=== PATIENT | female | born 1995 | race Hispanic/Latino ===

== ENCOUNTER 2019-12-20 00:42 | Inpatient (IN) | payer SELFPAY ==
[~2019-12-20] VITALS: Ht 165.1 cm; Wt 84.2 kg
[2019-12-20] VITALS (24 sets, daily range): BP systolic 106–157; BP diastolic 60–108
[2019-12-20 00:59] LABS: APPEARANCE,URINE Clear (CLEAR); BILIRUBIN,URINE Negative (NEGATIVE); COLOR,URINE Yellow (YELLOW); GLUCOSE, URINE (UA) >=1000 mg/dL (NEGATIVE); KETONES,URINE 40 mg/dL (NEGATIVE); LEUKOCYTE ESTERASE ,URINE Negative (NEGATIVE); NITRATE,URINE Negative (NEGATIVE); OCCULT BLOOD,URINE Negative (NEGATIVE); PROTEIN,URINE Trace mg/dL (NEGATIVE); UROBILINOGEN,URINE 0.2 mg/dL (0.2-1.0)
[2019-12-20 01:01] LABS: HCG,QUAL RESULT NEGATIVE (NEGATIVE)
[2019-12-20] MEDS ORDERED: SODIUM CHLORIDE 0.9% 1000ML 2,000 ML IV ONE (01:07)
[2019-12-20 01:08] LABS: ABG OXYGEN SATURATION 93.7 % (95.0-99.0); BASE EXCESS,VENOUS BLOOD GAS -16.4 (-2.0-3.0); HCO3,VENOUS BLOOD GAS 7.9 (21.0-28.0); PCO2,VENOUS BLOOD GAS 18 (32-45)
[2019-12-20] MEDS ORDERED: METOCLOPRAMIDE 10 MG/2 ML VIAL ONE (01:08)
[2019-12-20] MEDS ORDERED: ONDANSETRON HCL 4 MG/2 ML VIAL ONE (01:08)
[2019-12-20] MEDS ORDERED: FAMOTIDINE/PF 20 MG/2 ML VIAL IV ONE (01:09)
[2019-12-20 01:10] LABS: RBC,URINE 0-1 /HPF (0-1); WBC,URINE 0-1 /HPF (0-1)
[2019-12-20 01:11] LABS: BACTERIA,URINE Rare /HPF (None Seen); SQUAMOUS EPITHELIAL CELL,UR 0-2 /HPF (0-2)
[2019-12-20 01:16] LABS: AMPHET/METH SCREEN,URINE NEGATIVE (NEGATIVE); BARBITURATE SCREEN, URINE NEGATIVE (NEGATIVE); BENZODIAZEPINES SCREEN,URINE POSITIVE (NEGATIVE); CANNABINOID SCREEN,URINE NEGATIVE (NEGATIVE); COCAINE SCREEN,URINE NEGATIVE (NEGATIVE); OPIATE SCREEN,URINE NEGATIVE (NEGATIVE); PHENCYCLIDINE SCREEN,URINE NEGATIVE (NEGATIVE)
[2019-12-20 01:27] LABS: BASOPHILS % (AUTO) 0.6 % (0.0-5.0); EOSINOPHILS % (AUTO) 1.3 % (0.0-8.0); HEMATOCRIT 40.1 % (36-48); LYMPHOCYTES % (AUTO) 36.7 % (21.0-51.0); MEAN CORPUSCULAR HEMOGLOBIN 36.7 pg (27.0-33.0); MEAN CORPUSCULAR HGB CONC 42.1 g/dL (32.0-36.0); NEUTROPHILS % (AUTO) 55.1 % (40.0-77.0); PLATELET COUNT (AUTO) 178 K/uL (130-400); RED BLOOD CELL COUNT(AUTO) 4.61 MIL/uL (4.00-5.50); RED CELL DISTRIBUTION WIDTH 12.1 % (11.0-15.5); WHITE BLOOD COUNT (AUTO) 5.4 K/uL (4.8-10.8)
[2019-12-20] MEDS ORDERED: SODIUM CHLORIDE 0.9% 1000ML 1,000 ML IV ONE ×3 (01:36→09:20)
[2019-12-20 02:09] LABS: CREATININE 0.4 mg/dL (0.5-1.5)
[2019-12-20 02:14] LABS: BILIRUBIN,TOTAL 0.6 mg/dL (0.2-1.0)
[2019-12-20 02:18] LABS: ALBUMIN 4.2 g/dL (3.5-5.0); TOTAL PROTEIN, SERUM 7.2 g/dL (6.0-8.3)
[2019-12-20] MEDS ORDERED: INSULIN HUMULIN R 100 UNIT/ML 3ML ONE ×2 (02:19→03:18)
[2019-12-20 02:20] LABS: INR 0.88 (0.85-1.15); PARTIAL THROMBOPLASTIN TIME 21.4 SEC (26.3-35.5); PROTHROMBIN TIME 9.6 SEC (9.6-11.6)
[2019-12-20] MEDS ORDERED: DEXTROSE 5 %-0.45 % NACL 1,000 ML IV PRN (02:44)
[2019-12-20] MEDS: SODIUM CHLORIDE 0.9% 1000ML 1,000 ML IV SCH ×6 (02:44→22:11)
[2019-12-20] MEDS ORDERED: SODIUM CHLORIDE 0.9% 1000ML 1,000 ML IV SCH (02:44)
[2019-12-20] MEDS ORDERED: PHARMACY COMMUNICATION MISC PRN (02:45)
[2019-12-20] MEDS ORDERED: CHLORDIAZEPOXIDE HCL 25 MG CAP PO PRN ×2 (02:45)
[2019-12-20] MEDS ORDERED: POTASSIUM CHLORIDE 10MEQ/100ML 100 ML IV PRN (02:45)
[2019-12-20] MEDS ORDERED: ACETAMINOPHEN 325 MG TAB PO PRN ×2 (02:45)
[2019-12-20] MEDS ORDERED: LACTULOSE 20 GM/30 ML UDCUP PO PRN (02:45)
[2019-12-20] MEDS ORDERED: LORAZEPAM 2 MG/ML 1 ML VIAL IVP PRN ×2 (02:45)
[2019-12-20] MEDS ORDERED: ONDANSETRON HCL 4 MG/2 ML VIAL IV PRN (02:45)
[2019-12-20] MEDS ORDERED: SODIUM CHLORIDE 0.9% 100 ML IV ONE ×2 (03:18→03:22)
[2019-12-20 03:25] LABS: ABG BASE EXCESS -8.7 mmol/L (-2.0-3.0); ABG HCO3 16.6 mmol/L (21.0-28.0); ABG PCO2 34 mmHg (32-45)
--- NOTE | 2019-12-20 05:42 | NUR ---
Received patient from ER on insulin drip and on NS @200 ml/hr .Patient is admitted for DKA.Patient is alert and oriented,denies any discomfort at this time.Patient instructed to use call light for assistance.
[2019-12-20 07:08] LABS: BASOPHILS % (AUTO) 0.5 % (0.0-5.0); EOSINOPHILS % (AUTO) 0.8 % (0.0-8.0); HEMATOCRIT 37.7 % (36-48); LYMPHOCYTES % (AUTO) 30.2 % (21.0-51.0); MEAN CORPUSCULAR HEMOGLOBIN 34.5 pg (27.0-33.0); MEAN CORPUSCULAR HGB CONC 39.8 g/dL (32.0-36.0); MEAN CORPUSCULAR VOLUME 86.7 fL (79-99); NEUTROPHILS % (AUTO) 62.7 % (40.0-77.0); PLATELET COUNT (AUTO) 165 K/uL (130-400); RED BLOOD CELL COUNT(AUTO) 4.35 MIL/uL (4.00-5.50); RED CELL DISTRIBUTION WIDTH 12.1 % (11.0-15.5); WHITE BLOOD COUNT (AUTO) 7.6 K/uL (4.8-10.8)
[2019-12-20 07:19] LABS: CREATININE 0.5 mg/dL (0.5-1.5); MAGNESIUM 1.2 mg/dL (1.80-2.40); POTASSIUM 3.1 mmol/L (3.5-5.1)
[2019-12-20] MEDS ORDERED: INSULIN HUMULIN R 100 UNIT/ML 3ML SQ SCH (07:30)
[2019-12-20] MEDS ORDERED: MAGNESIUM 2GM PREMIX 50ML 50 ML IV ONE (07:57)
[2019-12-20] MEDS: FAMOTIDINE/PF 20 MG/2 ML VIAL IV SCH ×2 (08:02→20:07)
[2019-12-20] MEDS: ENOXAPARIN SODIUM 40 MG/0.4 ML SYRINGE SQ SCH (08:03)
[2019-12-20] MEDS ORDERED: POTASSIUM CHLORIDE 20 MEQ in SODIUM CHLORIDE 0.9% 1000ML 1,000 ML IV SCH (08:59)
[2019-12-20] MEDS: MAGNESIUM 2GM PREMIX 50ML 50 ML IV SCH ×2 (09:14→09:28)
[2019-12-20] MEDS: INSULIN LISPRO 100 UNIT/ML 3ML SQ SCH ×5 (11:58→20:17)
--- NOTE | 2019-12-20 15:03 | NUR ---
INITIAL SW spoke with patient. Patient states she lives with boyfriend, Kieran Ewing , [phone]. No home services. DME: glucometer(uses insulin). Patient states she is working at a [employer]. She states she is able to complete ADL's independently but does not drive. PCP is Dr. Joaquin Roa at [facility]. Pharmacy is [facility]. DCP is home. Patient has no insurance or benefits. He is a [place] citizen and works. SW educated patient on [employer] $4 medication program and [employer] $5 medication program. Patient is being assisted by [employer] for financial matters. Addendum: 12/20/19 at 1518 by CRISTEL ALCANTARA SS Amended: Links added.
[2019-12-20 16:24] LABS: CREATININE 0.5 mg/dL (0.5-1.5); MAGNESIUM 2.4 mg/dL (1.80-2.40); PHOSPHORUS 2.3 mg/dL (2.5-4.9); POTASSIUM 3.9 mmol/L (3.5-5.1)
--- NOTE | 2019-12-20 17:10 | NUR ---
transfer report given to reema ibarra and patient transferred to room 309; patient relaxed in bed with no complaints at this time
--- NOTE | 2019-12-20 20:10 | NUR ---
MEDS SHIFT ASSESSMENT DONE, PLEASE REFER TO CHART. DUE MEDS ADMINISTERED, TOLERATED WELL. KEPT RESTED AND COMFORTABLE. CALL LIGHT WITHIN REACH. WILL MONITOR PT. Addendum: 12/21/19 at 0148 by MARTINEZ MCGRATH RN RN Amended: Links added.
[2019-12-20] MEDS: INSULIN GLARGINE 100 UNITS/ML 10 ML VIAL SQ SCH (20:17)
--- NOTE | 2019-12-20 21:00 | NUR ---
SHOWER PT REQUESTED TO SHOWER. SALINE LOCKED PT. PCP IN TO ASSIST PT.
[2019-12-21 00:51] VITALS: BP 127/74
--- NOTE | 2019-12-21 02:00 | NUR ---
ROUNDS PT RESTING WELL, FAIRLY ASLEEP. NO DISTRESS NOTED. KEPT RESTED AND COMFORTABLE. CALL LIGHT WITHIN REACH. WILL MONITOR PT.
[2019-12-21] MEDS: SODIUM CHLORIDE 0.9% 1000ML 1,000 ML IV SCH ×4 (03:08→17:41)
[2019-12-21 03:26] VITALS: BP 123/70
[2019-12-21 04:12] LABS: BASOPHILS % (AUTO) 0.5 % (0.0-5.0); EOSINOPHILS % (AUTO) 2.3 % (0.0-8.0); HEMATOCRIT 34.1 % (36-48); HEMOGLOBIN A1C 9.9 % (4.0-6.0); LYMPHOCYTES % (AUTO) 54.4 % (21.0-51.0); MEAN CORPUSCULAR HEMOGLOBIN 31.3 pg (27.0-33.0); MEAN CORPUSCULAR HGB CONC 35.8 g/dL (32.0-36.0); MEAN CORPUSCULAR VOLUME 87.4 fL (79-99); MONOCYTES % (AUTO) 4.9 % (3.0-13.0); NEUTROPHILS % (AUTO) 37.1 % (40.0-77.0); PLATELET COUNT (AUTO) 123 K/uL (130-400); RED CELL DISTRIBUTION WIDTH 12.4 % (11.0-15.5); WHITE BLOOD COUNT (AUTO) 3.9 K/uL (4.8-10.8)
[2019-12-21 04:33] LABS: CREATININE 0.5 mg/dL (0.5-1.5); MAGNESIUM 1.6 mg/dL (1.80-2.40); PHOSPHORUS 2.7 mg/dL (2.5-4.9); POTASSIUM 3.5 mmol/L (3.5-5.1)
[2019-12-21] MEDS: MAGNESIUM 2GM PREMIX 50ML 50 ML IV SCH (04:50)
--- NOTE | 2019-12-21 04:50 | NUR ---
MEDS PT ALREADY AWAKE, WATCHING TV. NO CONCERNS VERBALIZED. MAGNESIUM REPLACEMENT HUNG. KEPT RESTED IN BED. FOR MORE CARE.
[2019-12-21] MEDS: INSULIN LISPRO 100 UNIT/ML 3ML SQ SCH ×6 (06:39→21:00)
[2019-12-21 07:30] VITALS: BP 122/76
[2019-12-21] MEDS: FAMOTIDINE/PF 20 MG/2 ML VIAL IV SCH ×2 (08:37→22:06)
[2019-12-21] MEDS: ENOXAPARIN SODIUM 40 MG/0.4 ML SYRINGE SQ SCH (08:37)
[2019-12-21 11:00] VITALS: BP 131/82
[2019-12-21 16:00] VITALS: BP 133/78
[2019-12-21 20:39] VITALS: BP 135/80
[2019-12-21] MEDS: INSULIN GLARGINE 100 UNITS/ML 10 ML VIAL SQ SCH (22:08)
[2019-12-22 00:19] VITALS: BP 137/76
--- NOTE | 2019-12-22 00:26 | NUR ---
TOOK OVER CARE TOOK OVER CARE OF PATIENT DUE TO REAL RN BEING SENT HOME. PATIENT IS RESTING IN BED AT THIS TIME NO CONCERNS OR COMPLAINTS AT THIS TIME.
[2019-12-22] MEDS: SODIUM CHLORIDE 0.9% 1000ML 1,000 ML IV SCH ×3 (00:59→12:13)
[2019-12-22 04:00] VITALS: BP 127/82
[2019-12-22 05:33] LABS: BASOPHILS % (AUTO) 0.4 % (0.0-5.0); EOSINOPHILS % (AUTO) 2.6 % (0.0-8.0); HEMATOCRIT 34.7 % (36-48); LYMPHOCYTES % (AUTO) 54.3 % (21.0-51.0); MEAN CORPUSCULAR HGB CONC 35.4 g/dL (32.0-36.0); MEAN CORPUSCULAR VOLUME 87.4 fL (79-99); MONOCYTES % (AUTO) 5.7 % (3.0-13.0); NEUTROPHILS % (AUTO) 36.6 % (40.0-77.0); PLATELET COUNT (AUTO) 137 K/uL (130-400); RED BLOOD CELL COUNT(AUTO) 3.97 MIL/uL (4.00-5.50); RED CELL DISTRIBUTION WIDTH 12.3 % (11.0-15.5); WHITE BLOOD COUNT (AUTO) 4.7 K/uL (4.8-10.8)
[2019-12-22 06:16] LABS: ALBUMIN 2.9 g/dL (3.5-5.0); BILIRUBIN,TOTAL 0.6 mg/dL (0.2-1.0); CREATININE 0.5 mg/dL (0.5-1.5); MAGNESIUM 1.5 mg/dL (1.80-2.40); POTASSIUM 3.2 mmol/L (3.5-5.1)
[2019-12-22 07:27] VITALS: BP 122/75
[2019-12-22] MEDS: INSULIN LISPRO 100 UNIT/ML 3ML SQ SCH ×6 (07:30→16:43)
[2019-12-22] MEDS ORDERED: POTASSIUM CHLORIDE 20 MEQ ERTAB PO SCH ×2 (07:30→12:00)
[2019-12-22] MEDS: ENOXAPARIN SODIUM 40 MG/0.4 ML SYRINGE SQ SCH (08:25)
[2019-12-22] MEDS: FAMOTIDINE/PF 20 MG/2 ML VIAL IV SCH (08:25)
[2019-12-22 10:45] VITALS: BP 120/75
[2019-12-22] MEDS ORDERED: INSU100V SQ (14:53)
[2019-12-22] MEDS ORDERED: INSLAN SQ (14:53)
[2019-12-22] MEDS ORDERED: MAGNESIUM OXIDE 400 MG TABLET PO SCH (15:15)
[2019-12-22 15:37] VITALS: BP 129/80
[2019-12-22] MEDS: MAGNESIUM 2GM PREMIX 50ML 50 ML IV SCH (16:40)
== END 2019-12-22 18:40 | disposition home or self-care (01) | DRG 639 ==
LOC: EDH 00:42 → EDHIP 00:43 → 2BH 04:30 → 3BH 17:25
PROVIDERS: ADMIT Internal Medicine; ATTEND Internal Medicine
DX: E11.10 Type 2 diabetes mellitus with ketoacidosis without coma (principal); E86.1 Hypovolemia; F13.90 Sedative, hypnotic, or anxiolytic use, unspecified, uncomplicated; F17.210 Nicotine dependence, cigarettes, uncomplicated; Z91.19 Patient's noncompliance with other medical treatment and regimen; Z91.14 Patient's other noncompliance with medication regimen; Z79.4 Long term (current) use of insulin
CPT/HCPCS: 36415; 36600; 80048; 80053; 80305; 81001; 81025; 82010; 82435; 82550; 82803; 82947; 82948; 83036; 83605; 83690; 83735; 84100; 84132; 84295; 85018; 85025; 85610; 85730; G0378; G0480; J1650; J1815; J2405; J2765; J3475; J3480; J3490; J7030; J7042

== ENCOUNTER 2020-12-24 07:30 | Inpatient (IN) | payer SELFPAY ==
[~2020-12-24] VITALS: Ht 165.1 cm; Wt 81.0 kg
[~2020-12-24 07:30] MED LIST: INSLAN SQ; INSU100V SQ
[2020-12-24 07:58] LABS: BASOPHILS % (AUTO) 0.3 % (0.0-5.0); EOSINOPHILS % (AUTO) 0.1 % (0.0-8.0); HEMATOCRIT 40.3 % (36-48); LYMPHOCYTES % (AUTO) 10.1 % (21.0-51.0); MEAN CORPUSCULAR HEMOGLOBIN 30.5 pg (27.0-33.0); MEAN CORPUSCULAR HGB CONC 36.2 g/dL (32.0-36.0); MEAN CORPUSCULAR VOLUME 84.3 fL (79-99); MONOCYTES % (AUTO) 6.6 % (3.0-13.0); NEUTROPHILS % (AUTO) 82.3 % (40.0-77.0); PLATELET COUNT (AUTO) 192 K/uL (130-400); RED BLOOD CELL COUNT(AUTO) 4.78 MIL/uL (4.00-5.50); RED CELL DISTRIBUTION WIDTH 12.3 % (11.0-15.5); WHITE BLOOD COUNT (AUTO) 16.7 K/uL (4.8-10.8)
[2020-12-24 08:02] LABS: BILIRUBIN,URINE Negative (NEGATIVE); COLOR,URINE Yellow (YELLOW); GLUCOSE, URINE (UA) >=1000 mg/dL (NEGATIVE); KETONES,URINE >=160 mg/dL (NEGATIVE); LEUKOCYTE ESTERASE ,URINE Negative (NEGATIVE); NITRATE,URINE Negative (NEGATIVE); OCCULT BLOOD,URINE Negative (NEGATIVE); PROTEIN,URINE POS 1+ mg/dL (NEGATIVE); UROBILINOGEN,URINE 0.2 mg/dL (0.2-1.0)
[2020-12-24 08:04] LABS: APPEARANCE,URINE CLEAR (CLEAR); CREATININE 0.5 mg/dL (0.5-1.5); POTASSIUM 4.3 mmol/L (3.5-5.1)
[2020-12-24 08:05] LABS: HCG,QUAL RESULT NEGATIVE (NEGATIVE)
[2020-12-24 08:09] LABS: ALBUMIN 3.3 g/dL (3.5-5.0); TOTAL PROTEIN, SERUM 7.8 g/dL (6.0-8.3)
[2020-12-24] MEDS ORDERED: KETOROLAC 30MG VIAL (30MG/ML) ONE (08:30)
[2020-12-24] MEDS ORDERED: 0.9%NACL 1000ML 1,000 ML IV ONE ×2 (08:30→15:05)
[2020-12-24] MEDS ORDERED: FAMOTIDINE 20MG VIAL IV ONE ×2 (08:31→20:22)
[2020-12-24 08:33] LABS: BACTERIA,URINE Few /HPF (None Seen); RBC,URINE None Seen /HPF (0-1); WBC,URINE 0-1 /HPF (0-1)
[2020-12-24 08:45] LABS: ABG OXYGEN SATURATION 76.1 % (95.0-99.0); BASE EXCESS,VENOUS BLOOD GAS -8.9 (-2.0-3.0); HCO3,VENOUS BLOOD GAS 14.8 (21.0-28.0); PCO2,VENOUS BLOOD GAS 27 (32-45); PH,VENOUS BLOOD GAS 7.357 (7.350-7.450)
[2020-12-24] MEDS ORDERED: INSULIN HUMULIN R 100 UNIT/ML 3ML ONE (09:21)
[2020-12-24] MEDS ORDERED: ZOSYN 3.375GM+NS 50ML 50 ML IV ONE ×2 (10:54→20:21)
[2020-12-24 11:01] LABS: HEMOGLOBIN A1C 10.5 % (4.0-6.0)
[2020-12-24 11:16] LABS: CREATININE 0.5 mg/dL (0.5-1.5); POTASSIUM 4.2 mmol/L (3.5-5.1)
[2020-12-24 11:42] LABS: THYROID STIMULATING HORMONE 2.63 uIU/mL (0.36-3.74)
[2020-12-24 11:44] LABS: CHOLESTEROL 327 mg/dL (<200); TRIGLYCERIDES 1935 mg/dL (30-200)
[2020-12-24 11:45] LABS: LDL DIRECT 95 mg/dL (0-99)
[2020-12-24] MEDS ORDERED: 0.9%NACL 1000ML 1,000 ML IV SCH (12:00)
[2020-12-24] MEDS ORDERED: INSULIN HUMULIN R 100 UNIT/ML 3ML IV SCH (12:00)
[2020-12-24] MEDS: 0.9%NACL 1000ML 1,000 ML IV SCH ×3 (12:00→22:00)
[2020-12-24 12:07] LABS: HDL CHOLESTEROL 28 mg/dL (35-85)
[2020-12-24] MEDS: THIAMINE HCL 100 MG/ML 2ML VIAL IVP SCH (12:15)
[2020-12-24] MEDS ORDERED: INSULIN REGULAR, HUMAN 3ML 100 UNIT in 0.9%NACL 100ML 99 ML IV PRN ×2 (12:15)
[2020-12-24] MEDS ORDERED: IPRATROPIUM/ALBUTEROL SULFATE 3 ML SOLUTION IH PRN (12:15)
[2020-12-24] MEDS: FOLIC ACID 5 MG/ML VIAL IV SCH (12:15)
[2020-12-24] MEDS ORDERED: PHARMACY COMMUNICATION MISC SCH (12:15)
[2020-12-24 12:53] LABS: CREATININE 0.5 mg/dL (0.5-1.5); POTASSIUM 4.4 mmol/L (3.5-5.1)
[2020-12-24] MEDS: ZOSYN 3.375GM+NS 50ML 50 ML IV SCH ×2 (14:00→22:00)
[2020-12-24] MEDS ORDERED: GADODIAMIDE 10 MMOL/20 ML VIAL IV ONE (14:45)
[2020-12-24] MEDS ORDERED: THIAMINE HCL 100 MG/ML 2ML VIAL ONE (15:46)
[2020-12-24] MEDS ORDERED: FOLIC ACID 5 MG/ML VIAL ONE (15:49)
[2020-12-24] MEDS ORDERED: DEXTROSE 5 %-0.45 % NACL 1,000 ML IV ONE (17:07)
[2020-12-24 17:23] LABS: AMPHET/METH SCREEN,URINE NEGATIVE (NEGATIVE); BARBITURATE SCREEN, URINE NEGATIVE (NEGATIVE); BENZODIAZEPINES SCREEN,URINE NEGATIVE (NEGATIVE); CANNABINOID SCREEN,URINE NEGATIVE (NEGATIVE); COCAINE SCREEN,URINE NEGATIVE (NEGATIVE); OPIATE SCREEN,URINE NEGATIVE (NEGATIVE); PHENCYCLIDINE SCREEN,URINE NEGATIVE (NEGATIVE)
[2020-12-24 19:31] LABS: CREATININE 0.5 mg/dL (0.5-1.5); POTASSIUM 3.9 mmol/L (3.5-5.1)
[2020-12-24] MEDS: FAMOTIDINE 20MG VIAL IV SCH (21:00)
[2020-12-24] MEDS ORDERED: ONDANSETRON 4MG INJ ONE (21:13)
[2020-12-24] MEDS ORDERED: MORPHINE 4 MG SYG ONE (21:13)
[2020-12-24 22:52] VITALS: BP 138/80
[2020-12-24 23:05] VITALS: BP 138/74
[2020-12-24] MEDS: DEXTROSE 5 %-0.45 % NACL 1,000 ML IV PRN (23:17)
[2020-12-24 23:20] VITALS: BP 133/77
[2020-12-24 23:35] VITALS: BP 133/76
[2020-12-25] VITALS (24 sets, daily range): BP systolic 125–143; BP diastolic 67–88
[2020-12-25 01:45] LABS: CREATININE 0.4 mg/dL (0.5-1.5); POTASSIUM 3.5 mmol/L (3.5-5.1)
[2020-12-25] MEDS: 0.9%NACL 1000ML 1,000 ML IV SCH ×5 (03:00→21:06)
[2020-12-25 05:41] LABS: BASOPHILS % (AUTO) 0.3 % (0.0-5.0); EOSINOPHILS % (AUTO) 0.4 % (0.0-8.0); MEAN CORPUSCULAR HEMOGLOBIN 30.8 pg (27.0-33.0); MEAN CORPUSCULAR HGB CONC 35.3 g/dL (32.0-36.0); MEAN CORPUSCULAR VOLUME 87.4 fL (79-99); MONOCYTES % (AUTO) 5.9 % (3.0-13.0); NEUTROPHILS % (AUTO) 81.1 % (40.0-77.0); PLATELET COUNT (AUTO) 154 K/uL (130-400); RED BLOOD CELL COUNT(AUTO) 4.12 MIL/uL (4.00-5.50); RED CELL DISTRIBUTION WIDTH 13.1 % (11.0-15.5); WHITE BLOOD COUNT (AUTO) 12.9 K/uL (4.8-10.8)
[2020-12-25] MEDS: ZOSYN 3.375GM+NS 50ML 50 ML IV SCH ×3 (05:54→21:08)
[2020-12-25] MEDS: DEXTROSE 5 %-0.45 % NACL 1,000 ML IV PRN (05:54)
[2020-12-25 07:21] LABS: CREATININE 0.4 mg/dL (0.5-1.5); POTASSIUM 3.3 mmol/L (3.5-5.1)
[2020-12-25] MEDS: THIAMINE HCL 100 MG/ML 2ML VIAL IVP SCH ×2 (08:29→12:15)
[2020-12-25] MEDS: FAMOTIDINE 20MG VIAL IV SCH ×2 (08:30→21:07)
[2020-12-25] MEDS ORDERED: INSULIN GLARGINE 100 UNITS/ML 10 ML VIAL SQ SCH (08:30)
[2020-12-25] MEDS: FOLIC ACID 5 MG/ML VIAL IV SCH ×2 (09:18→12:15)
[2020-12-25] MEDS: POTASSIUM CHLORIDE 10MEQ/100ML 100 ML IV PRN ×2 (09:19→10:25)
[2020-12-25] MEDS: LACTATED RINGERS 1000ML 1,000 ML IV SCH ×2 (10:25→20:30)
[2020-12-25] MEDS ORDERED: INSULIN R PO SS2 SQ SCH (11:30)
[2020-12-25] MEDS ORDERED: INSULIN HUMULIN R 100 UNIT/ML 3ML SQ SCH ×2 (11:30)
[2020-12-25] MEDS: DEXTROSE 5 % AND 0.9 % NACL 1,000 ML IV SCH (15:18)
[2020-12-25] MEDS: INSULIN HUMULIN R 100 UNIT/ML 3ML SQ SCH ×2 (15:50→21:00)
[2020-12-25] MEDS ORDERED: SINCALIDE 5 MCG ML VIAL IV ONE (18:44)
[2020-12-25 20:21] LABS: CREATININE 0.4 mg/dL (0.5-1.5); POTASSIUM 3.4 mmol/L (3.5-5.1)
[2020-12-26] VITALS (23 sets, daily range): BP systolic 107–139; BP diastolic 69–86
[2020-12-26] MEDS ORDERED: POTASSIUM CHLORIDE 10% ELIXIR 20 MEQ/15 ML UDCUP PO PRN (00:30)
[2020-12-26] MEDS ORDERED: LIDOCAINE HCL-MPF 1% 2ML VIAL ONE (00:51)
[2020-12-26] MEDS ORDERED: POTASSIUM CHLORIDE 20MEQ/100ML 100 ML IV ONE (00:51)
[2020-12-26] MEDS: 0.9%NACL 1000ML 1,000 ML IV SCH ×5 (01:02→23:16)
[2020-12-26] MEDS: DEXTROSE 5 % AND 0.9 % NACL 1,000 ML IV SCH ×3 (01:02→17:36)
[2020-12-26 04:11] LABS: BASOPHILS % (AUTO) 0.2 % (0.0-5.0); EOSINOPHILS % (AUTO) 1.6 % (0.0-8.0); HEMATOCRIT 34.3 % (36-48); LYMPHOCYTES % (AUTO) 17.6 % (21.0-51.0); MEAN CORPUSCULAR HEMOGLOBIN 29.2 pg (27.0-33.0); MEAN CORPUSCULAR HGB CONC 34.1 g/dL (32.0-36.0); MEAN CORPUSCULAR VOLUME 85.5 fL (79-99); MONOCYTES % (AUTO) 6.7 % (3.0-13.0); NEUTROPHILS % (AUTO) 73.5 % (40.0-77.0); PLATELET COUNT (AUTO) 152 K/uL (130-400); RED BLOOD CELL COUNT(AUTO) 4.01 MIL/uL (4.00-5.50); RED CELL DISTRIBUTION WIDTH 12.6 % (11.0-15.5); WHITE BLOOD COUNT (AUTO) 8.1 K/uL (4.8-10.8)
[2020-12-26 04:37] LABS: CREATININE 0.4 mg/dL (0.5-1.5); POTASSIUM 3.5 mmol/L (3.5-5.1)
[2020-12-26] MEDS: LACTATED RINGERS 1000ML 1,000 ML IV SCH ×3 (05:17→23:16)
[2020-12-26] MEDS: INSULIN HUMULIN R 100 UNIT/ML 3ML SQ SCH ×4 (05:17→20:54)
[2020-12-26] MEDS: ZOSYN 3.375GM+NS 50ML 50 ML IV SCH ×3 (05:27→20:55)
[2020-12-26] MEDS: POTASSIUM CHLORIDE 20MEQ/100ML 100 ML IV PRN (06:15)
[2020-12-26] MEDS: LIDOCAINE HCL-MPF 1% 2ML VIAL IV PRN (06:16)
[2020-12-26] MEDS ORDERED: INSULIN GLARGINE 100 UNITS/ML 10 ML VIAL SQ SCH (08:00)
[2020-12-26] MEDS ORDERED: COMPOUND IV REFRIGERATED 1 EACH IVSOLN MISC PRN (09:00)
[2020-12-26] MEDS: THIAMINE HCL 100 MG/ML 2ML VIAL IVP SCH ×2 (09:12→11:24)
[2020-12-26] MEDS: FAMOTIDINE 20MG VIAL IV SCH ×2 (09:13→19:58)
[2020-12-26] MEDS: FOLIC ACID 5 MG/ML VIAL IV SCH (09:16)
[2020-12-26 12:38] LABS: CREATININE 0.4 mg/dL (0.5-1.5); POTASSIUM 3.1 mmol/L (3.5-5.1)
[2020-12-26] MEDS: KCL 20 MEQ ERTAB PO PRN ×2 (13:06→15:53)
[2020-12-27] VITALS (19 sets, daily range): BP systolic 115–136; BP diastolic 70–83
[2020-12-27] MEDS: DEXTROSE 5 % AND 0.9 % NACL 1,000 ML IV SCH ×2 (00:29→05:52)
[2020-12-27 03:51] LABS: BASOPHILS % (AUTO) 0.2 % (0.0-5.0); EOSINOPHILS % (AUTO) 3.1 % (0.0-8.0); HEMATOCRIT 30.3 % (36-48); LYMPHOCYTES % (AUTO) 33.1 % (21.0-51.0); MEAN CORPUSCULAR HEMOGLOBIN 29.5 pg (27.0-33.0); MEAN CORPUSCULAR HGB CONC 33.7 g/dL (32.0-36.0); MEAN CORPUSCULAR VOLUME 87.6 fL (79-99); MONOCYTES % (AUTO) 5.4 % (3.0-13.0); NEUTROPHILS % (AUTO) 57.8 % (40.0-77.0); PLATELET COUNT (AUTO) 157 K/uL (130-400); RED BLOOD CELL COUNT(AUTO) 3.46 MIL/uL (4.00-5.50); RED CELL DISTRIBUTION WIDTH 12.8 % (11.0-15.5); WHITE BLOOD COUNT (AUTO) 4.5 K/uL (4.8-10.8)
[2020-12-27 04:08] LABS: CREATININE 0.5 mg/dL (0.5-1.5); MAGNESIUM 1.6 mg/dL (1.80-2.40)
[2020-12-27 04:25] LABS: POTASSIUM 2.8 mmol/L (3.5-5.1)
[2020-12-27] MEDS: LIDOCAINE HCL-MPF 1% 2ML VIAL IV PRN (04:35)
[2020-12-27] MEDS: POTASSIUM CHLORIDE 20MEQ/100ML 100 ML IV PRN (04:35)
[2020-12-27] MEDS: 0.9%NACL 1000ML 1,000 ML IV SCH ×4 (05:00→20:00)
[2020-12-27] MEDS: ZOSYN 3.375GM+NS 50ML 50 ML IV SCH ×3 (05:53→22:04)
[2020-12-27] MEDS: KCL 20 MEQ ERTAB PO PRN ×2 (06:18→08:28)
[2020-12-27] MEDS: INSULIN HUMULIN R 100 UNIT/ML 3ML SQ SCH ×8 (07:30→20:35)
[2020-12-27] MEDS ORDERED: LACTATED RINGERS 1000ML 1,000 ML IV SCH (08:15)
[2020-12-27] MEDS ORDERED: MAGNESIUM 2GM PREMIX 50ML 50 ML IV ONE (08:24)
[2020-12-27] MEDS: FAMOTIDINE 20MG VIAL IV SCH ×2 (08:28→20:33)
[2020-12-27] MEDS: FENOFIBRATE NANOCRYSTALLIZED 145 MG TAB PO SCH (08:28)
[2020-12-27] MEDS: ATORVASTATIN 40 MG TABLET PO SCH (08:28)
[2020-12-27] MEDS: FISH OIL 1000 MG/CAP PO SCH (08:28)
[2020-12-27] MEDS: THIAMINE HCL 100 MG/ML 2ML VIAL IVP SCH ×2 (08:29→12:15)
[2020-12-27] MEDS ORDERED: INSULIN GLARGINE 100 UNITS/ML 10 ML VIAL SQ SCH ×2 (08:30→09:30)
[2020-12-27] MEDS ORDERED: LACTATED RINGERS IV SCH (08:30)
[2020-12-27] MEDS ORDERED: POTASSIUM CHLORIDE IV SCH (08:30)
[2020-12-27] MEDS ORDERED: MAGNESIUM 2GM PREMIX 50ML 50 ML IV PRN (09:00)
[2020-12-27] MEDS: FOLIC ACID 5 MG/ML VIAL IV SCH (09:45)
[2020-12-27] MEDS: LACTATED RINGERS 1000ML 1,000 ML IV SCH (12:30)
[2020-12-27 12:34] LABS: CREATININE 0.4 mg/dL (0.5-1.5)
[2020-12-27] MEDS ORDERED: INSULIN HUMULIN R 100 UNIT/ML 3ML SQ SCH (16:30)
[2020-12-28] VITALS: BP 117/77
[2020-12-28] MEDS ORDERED: LACTATED RINGERS 1000ML 1,000 ML IV SCH ×2 (00:30→08:30)
[2020-12-28 04:00] VITALS: BP 116/76
[2020-12-28] MEDS: ZOSYN 3.375GM+NS 50ML 50 ML IV SCH (05:28)
[2020-12-28 05:45] LABS: BASOPHILS % (AUTO) 0.5 % (0.0-5.0); EOSINOPHILS % (AUTO) 3.8 % (0.0-8.0); HEMATOCRIT 31.2 % (36-48); LYMPHOCYTES % (AUTO) 44.6 % (21.0-51.0); MEAN CORPUSCULAR VOLUME 88.4 fL (79-99); MONOCYTES % (AUTO) 5.6 % (3.0-13.0); PLATELET COUNT (AUTO) 162 K/uL (130-400); RED BLOOD CELL COUNT(AUTO) 3.53 MIL/uL (4.00-5.50); RED CELL DISTRIBUTION WIDTH 12.9 % (11.0-15.5); WHITE BLOOD COUNT (AUTO) 3.9 K/uL (4.8-10.8)
[2020-12-28 05:58] LABS: CREATININE 0.3 mg/dL (0.5-1.5); POTASSIUM 3.8 mmol/L (3.5-5.1)
[2020-12-28] MEDS: INSULIN HUMULIN R 100 UNIT/ML 3ML SQ SCH ×4 (06:15→11:30)
[2020-12-28 08:12] VITALS: BP 119/78
[2020-12-28] MEDS: FOLIC ACID 5 MG/ML VIAL IV SCH (09:00)
[2020-12-28] MEDS ORDERED: INSULIN GLARGINE 100 UNITS/ML 10 ML VIAL SQ SCH (09:00)
[2020-12-28] MEDS: FAMOTIDINE 20MG VIAL IV SCH (09:29)
[2020-12-28] MEDS: FISH OIL 1000 MG/CAP PO SCH (09:30)
[2020-12-28] MEDS: THIAMINE HCL 100 MG/ML 2ML VIAL IVP SCH (09:30)
[2020-12-28] MEDS: FENOFIBRATE NANOCRYSTALLIZED 145 MG TAB PO SCH (09:31)
[2020-12-28] MEDS: ATORVASTATIN 40 MG TABLET PO SCH (09:31)
[2020-12-28 11:41] VITALS: BP 112/73
[2020-12-28] MEDS ORDERED: ATOR40TA69 PO (13:03)
[2020-12-28] MEDS ORDERED: INSU100V3 SQ (13:03)
[2020-12-28] MEDS ORDERED: FENO145T PO (13:03)
[2020-12-28] MEDS ORDERED: FISH1CAP20 PO (13:03)
[2020-12-28] MEDS ORDERED: INSU100V12 SQ (13:03)
== END 2020-12-28 16:10 | disposition home or self-care (01) | DRG 637 ==
LOC: EDH 07:30 → EDHIP 07:31 → 2DH 22:46 → 3AH 12-27 21:37
PROVIDERS: ADMIT Internal Medicine; ATTEND Internal Medicine
DX: E11.10 Type 2 diabetes mellitus with ketoacidosis without coma (principal); K85.90 Acute pancreatitis without necrosis or infection, unspecified; E87.3 Alkalosis; E87.1 Hypo-osmolality and hyponatremia; J90 Pleural effusion, not elsewhere classified; E78.1 Pure hyperglyceridemia; Z91.19 Patient's noncompliance with other medical treatment and regimen; K80.70 Calculus of gallbladder and bile duct without cholecystitis without obstruction; E86.0 Dehydration; K80.20 Calculus of gallbladder without cholecystitis without obstruction; G24.9 Dystonia, unspecified; E87.6 Hypokalemia; F17.210 Nicotine dependence, cigarettes, uncomplicated; K40.90 Unilateral inguinal hernia, without obstruction or gangrene, not specified as recurrent; K76.0 Fatty (change of) liver, not elsewhere classified; K82.8 Other specified diseases of gallbladder; N83.209 Unspecified ovarian cyst, unspecified side; Z79.4 Long term (current) use of insulin; Z83.3 Family history of diabetes mellitus; D72.829 Elevated white blood cell count, unspecified
CPT/HCPCS: 36415; 36600; 71045; 74176; 74183; 76705; 78227; 80048; 80053; 80061; 80305; 81001; 81025; 82009; 82010; 82150; 82803; 82948; 83036; 83605; 83690; 83735; 83930; 84145; 84443; 84478; 85025; 87040; 93005; 94664; A9537; A9579; G0378; J1815; J1885; J2270; J2405; J2543; J2805; J3411; J3475; J3480; J3490; J7030; J7042; J7120

== ENCOUNTER 2021-12-13 11:06 | Emergency (ER) | payer OTHER ==
[~2021-12-13] VITALS: Ht 165.1 cm; Wt 83.9 kg
[~2021-12-13 11:06] MED LIST changes: +ATOR40TA69 PO; +FENO145T PO; +FISH1CAP20 PO; -INSLAN SQ; -INSU100V SQ; +INSU100V12 SQ; +INSU100V3 SQ
[2021-12-13 11:41] LABS: APPEARANCE,URINE Clear (CLEAR); BILIRUBIN,URINE Negative (NEGATIVE); COLOR,URINE Yellow (YELLOW); GLUCOSE, URINE (UA) >=1000 mg/dL (NEGATIVE); KETONES,URINE 15 mg/dL (NEGATIVE); LEUKOCYTE ESTERASE ,URINE Negative (NEGATIVE); NITRATE,URINE Negative (NEGATIVE); OCCULT BLOOD,URINE Negative (NEGATIVE); PH,URINE 7.5 (5.0-8.0); PROTEIN,URINE Negative (NEGATIVE); UROBILINOGEN,URINE 0.2 mg/dL (0.2-1.0)
[2021-12-13 11:50] LABS: ABG OXYGEN SATURATION 86.8 % (95.0-99.0); BASE EXCESS,VENOUS BLOOD GAS -1.1 (-2.0-3.0); HCO3,VENOUS BLOOD GAS 24.2 (21.0-28.0); PCO2,VENOUS BLOOD GAS 43 (32-45); PH,VENOUS BLOOD GAS 7.373 (7.350-7.450)
[2021-12-13 12:01] LABS: BASOPHILS % (AUTO) 0.6 % (0.0-5.0); EOSINOPHILS % (AUTO) 1.7 % (0.0-8.0); HEMATOCRIT 38.1 % (36-48); LYMPHOCYTES % (AUTO) 37.1 % (21.0-51.0); MEAN CORPUSCULAR HEMOGLOBIN 34.1 pg (27.0-33.0); MEAN CORPUSCULAR HGB CONC 40.4 g/dL (32.0-36.0); MEAN CORPUSCULAR VOLUME 84.3 fL (79-99); MONOCYTES % (AUTO) 5.4 % (3.0-13.0); NEUTROPHILS % (AUTO) 54.8 % (40.0-77.0); PLATELET COUNT (AUTO) 173 K/uL (130-400); RED BLOOD CELL COUNT(AUTO) 4.52 MIL/uL (4.00-5.50); RED CELL DISTRIBUTION WIDTH 12.2 % (11.0-15.5); WHITE BLOOD COUNT (AUTO) 4.6 K/uL (4.8-10.8)
[2021-12-13 12:25] LABS: BACTERIA,URINE Rare /HPF (None Seen); RBC,URINE 0-1 /HPF (0-1); SQUAMOUS EPITHELIAL CELL,UR Rare /HPF (0-2); WBC,URINE 0-1 /HPF (0-1)
[2021-12-13 12:48] LABS: POTASSIUM 3.7 mmol/L (3.5-5.1)
[2021-12-13 12:49] LABS: BILIRUBIN,TOTAL 2.2 mg/dL (0.2-1.0)
[2021-12-13] MEDS ORDERED: INSULIN HUMULIN R 100 UNIT/ML 3ML SQ SCH (13:30)
[2021-12-13 13:36] LABS: ALBUMIN 3.9 g/dL (3.5-5.0); TOTAL PROTEIN, SERUM 7.3 g/dL (6.0-8.3)
[2021-12-13 14:10] LABS: CREATININE 0.4 mg/dL (0.5-1.5)
[2021-12-13 14:41] VITALS: BP 114/74
== END 2021-12-13 14:46 | disposition home or self-care (01) ==
LOC: EDH 11:06
DX: E10.65 Type 1 diabetes mellitus with hyperglycemia (principal); Z79.4 Long term (current) use of insulin; Z79.899 Other long term (current) drug therapy
CPT/HCPCS: 36415; 36600; 80053; 81001; 81025; 82435; 82803; 82947; 82948 ×2; 83605; 84132; 84295; 85025; 96372; 99283; J1815

== ENCOUNTER 2021-12-26 13:13 | Emergency (ER) | payer OTHER ==
[~2021-12-26] VITALS: Ht 165.1 cm; Wt 81.6 kg
[2021-12-26 13:17] VITALS: BP 142/82
[2021-12-26] MEDS ORDERED: KETOROLAC 30MG VIAL (30MG/ML) IM ONE (13:30)
[2021-12-26] MEDS ORDERED: ACETAMINOPHEN WITH CODEINE 1 TAB TAB PO ONE (13:30)
[2021-12-26] MEDS ORDERED: ACET-2079 PO (13:32)
[2021-12-26] MEDS ORDERED: KETOROLAC 30MG VIAL (30MG/ML) ONE (13:39)
[2021-12-26] MEDS ORDERED: ACETAMINOPHEN WITH CODEINE 1 TAB TAB ONE (13:40)
== END 2021-12-26 14:15 | disposition home or self-care (01) ==
LOC: EDH 13:13
DX: K08.89 Other specified disorders of teeth and supporting structures (principal); E11.9 Type 2 diabetes mellitus without complications; Z79.1 Long term (current) use of non-steroidal anti-inflammatories (NSAID); Z79.4 Long term (current) use of insulin; Z79.899 Other long term (current) drug therapy
CPT/HCPCS: 96372; 99283; J1885

== ENCOUNTER 2022-04-17 18:39 | Emergency (ER) | payer OTHER ==
[~2022-04-17] VITALS: Ht 165.1 cm; Wt 72.6 kg
[~2022-04-17 18:39] MED LIST changes: +ACET-2079 PO
[2022-04-17 18:41] VITALS: BP 139/82
[2022-04-17] MEDS ORDERED: KETOROLAC 30MG VIAL (30MG/ML) IM ONE (20:00)
[2022-04-17] MEDS ORDERED: ACETAMINOPHEN WITH CODEINE 1 TAB TAB PO ONE (20:00)
[2022-04-17] MEDS ORDERED: NAPR500T6 PO (20:08)
[2022-04-17] MEDS ORDERED: ACET-2079 PO (20:08)
== END 2022-04-17 20:41 | disposition home or self-care (01) ==
LOC: EDH 18:39
DX: K08.89 Other specified disorders of teeth and supporting structures (principal); E11.9 Type 2 diabetes mellitus without complications; Z79.1 Long term (current) use of non-steroidal anti-inflammatories (NSAID); Z79.899 Other long term (current) drug therapy
CPT/HCPCS: 99283; 96372; J1885

== ENCOUNTER 2022-10-19 15:45 | Emergency (ER) | payer OTHER ==
[~2022-10-19] VITALS: Ht 165.1 cm; Wt 81.6 kg
[~2022-10-19 15:45] MED LIST changes: +NAPR500T6 PO
[2022-10-19 15:59] VITALS: BP 135/81
[2022-10-19] MEDS ORDERED: AMOX/CLAV 875/125MG TAB PO ONE (17:00)
[2022-10-19] MEDS ORDERED: KETOROLAC 60 MG VIAL (30MG/ML) IM ONE (17:00)
[2022-10-19] MEDS ORDERED: AMOX-426 PO (17:26)
[2022-10-19] MEDS ORDERED: ACET-2079 PO (17:26)
[2022-10-19] MEDS ORDERED: IBUP-2070 PO (17:26)
[2022-10-20] MEDS ORDERED: CLIN-141 PO (13:36)
== END 2022-10-19 17:32 | disposition home or self-care (01) ==
LOC: EDH 15:45
DX: K04.7 Periapical abscess without sinus (principal); E11.9 Type 2 diabetes mellitus without complications; Z79.1 Long term (current) use of non-steroidal anti-inflammatories (NSAID); Z79.899 Other long term (current) drug therapy
CPT/HCPCS: 99283; 96372; J1885

== ENCOUNTER 2022-10-20 10:23 | Emergency (ER) | payer OTHER ==
[~2022-10-20] VITALS: Ht 152.4 cm; Wt 81.6 kg
[~2022-10-20 10:23] MED LIST changes: +AMOX-426 PO; +IBUP-2070 PO
[2022-10-20] MEDS ORDERED: KETOROLAC 60 MG VIAL (30MG/ML) IM ONE (13:30)
[2022-10-20] MEDS ORDERED: HYDROCODONE/ACETAMINOPHEN 5/325 MG TAB PO ONE (13:30)
[2022-10-20] MEDS ORDERED: PENICILLIN G BENZATHINE LA 1.2 MILUNITS/2 ML SYG IM ONE (13:30)
[2022-10-20] MEDS ORDERED: CLIN-141 PO (13:36)
[2022-10-20 13:50] VITALS: BP 129/61
== END 2022-10-20 13:50 | disposition home or self-care (01) ==
LOC: EDH 10:23
DX: K04.7 Periapical abscess without sinus (principal); K08.89 Other specified disorders of teeth and supporting structures; E10.65 Type 1 diabetes mellitus with hyperglycemia; Z79.899 Other long term (current) drug therapy
CPT/HCPCS: 99284; 96372 ×2; J0561; J1885

== ENCOUNTER 2023-05-22 16:51 | Emergency (ER) | payer OTHER ==
[~2023-05-22] VITALS: Ht 165.1 cm; Wt 83.5 kg
[~2023-05-22 16:51] MED LIST changes: +CLIN-141 PO
[2023-05-22 17:03] VITALS: BP 143/89; PULSE 98; RESP 18
[2023-05-22 17:31] LABS: ADD UA MICROSCOPIC YES; APPEARANCE,URINE CLEAR (CLEAR); BILIRUBIN,URINE NEGATIVE (NEGATIVE); COLOR,URINE COLORLESS (YELLOW); GLUCOSE, URINE (UA) >=1000 mg/dL (NEGATIVE); HCG,QUALITATIVE URINE NEGATIVE (NEGATIVE); KETONES,URINE 20 mg/dL (NEGATIVE); LEUKOCYTE ESTERASE ,URINE 25 Leu/uL (NEGATIVE); NITRATE,URINE NEGATIVE (NEGATIVE); OCCULT BLOOD,URINE NEGATIVE (NEGATIVE); PROTEIN,URINE NEGATIVE (NEGATIVE); UROBILINOGEN,URINE 0.2 mg/dL (0.2-1.0)
[2023-05-22 17:33] LABS: BACTERIA,URINE RARE /HPF (None Seen); SQUAMOUS EPITHELIAL CELL,UR RARE /HPF (0-2)
[2023-05-22 17:50] LABS: BASOPHILS # (AUTO) 0.04 K/uL (0.00-0.20); BASOPHILS % (AUTO) 0.6 % (0.0-5.0); EOSINOPHILS # (AUTO) 0.07 K/uL (0.00-0.70); HEMATOCRIT 39.2 % (36-48); IMMATURE GRANULOCYTE ABSOLUTE 0.04 K/uL (0-1); LYMPHOCYTES # (AUTO) 2.3 K/uL (1.0-4.8); LYMPHOCYTES % (AUTO) 32.1 % (21.0-51.0); MEAN CORPUSCULAR VOLUME 84.5 fL (79-99); MONOCYTES # (AUTO) 0.3 K/uL (0.1-1.0); MONOCYTES % (AUTO) 4.7 % (3.0-13.0); NEUTROPHILS # (AUTO) 4.4 K/uL (1.8-7.7); PLATELET COUNT (AUTO) 169 K/uL (130-400); RED BLOOD CELL COUNT(AUTO) 4.64 MIL/uL (4.00-5.50); RED CELL DISTRIBUTION WIDTH 12.4 % (11.0-15.5); WHITE BLOOD COUNT (AUTO) 7.2 K/uL (4.8-10.8)
[2023-05-22 18:16] LABS: MEAN CORPUSCULAR HEMOGLOBIN 31.5 pg (27.0-33.0); MEAN CORPUSCULAR HGB CONC 37.2 g/dL (32.0-36.0)
[2023-05-22 18:27] LABS: BILIRUBIN,TOTAL 1.2 mg/dL (0.2-1.0); POTASSIUM 3.5 mmol/L (3.5-5.1)
[2023-05-22 18:56] LABS: ALBUMIN 3.8 g/dL (3.5-5.0); CREATININE 0.5 mg/dL (0.5-1.5); TOTAL PROTEIN, SERUM 7.7 g/dL (6.0-8.3)
[2023-05-22] MEDS ORDERED: 0.9%NACL 1000ML 1,000 ML IV SCH (19:30)
[2023-05-22 19:38] LABS: ABG BASE EXCESS -4.2 mmol/L (-2.0-3.0); ABG HCO3 19.5 mmol/L (21.0-28.0); ABG OXYGEN SATURATION 95.9 % (95.0-99.0); ABG PCO2 32 mmHg (32-45); ABG PH 7.403 (7.350-7.450); PO2, ARTERIAL BG 79.5 mmHg (83.0-108.0); VENT MODE, BG ROOM AIR (ROOM AIR)
[2023-05-22] MEDS ORDERED: INSULIN HUMULIN R 100 UNIT/ML 3ML IV ONE (21:00)
[2023-05-22] MEDS ORDERED: 0.9%NACL 1000ML 1,000 ML IV ONE (21:00)
[2023-05-22] MEDS ORDERED: ONDA4TAB10 PO (22:18)
[2023-05-22] MEDS ORDERED: CEFD300C3 PO (22:18)
== END 2023-05-22 22:31 | disposition home or self-care (01) ==
LOC: EDH 16:51
DX: N39.0 Urinary tract infection, site not specified (principal); E11.65 Type 2 diabetes mellitus with hyperglycemia; Z79.899 Other long term (current) drug therapy
CPT/HCPCS: 99283; 96374; 96361; 80053; 82803; 83690; 85025; 82948; 82010; 81001; 81025; 36415; 36600; J1815; J7030 ×2

== ENCOUNTER 2023-07-31 20:45 | Emergency (ER) | payer OTHER ==
[~2023-07-31 20:45] MED LIST changes: +CEFD300C3 PO; +ONDA4TAB10 PO
[2023-07-31 21:16] LABS: BASOPHILS # (AUTO) 0.02 K/uL (0.00-0.20); BASOPHILS % (AUTO) 0.3 % (0.0-5.0); EOSINOPHILS # (AUTO) 0.07 K/uL (0.00-0.70); IMMATURE GRANULOCYTE ABSOLUTE 0.02 K/uL (0-1); LYMPHOCYTES # (AUTO) 1.6 K/uL (1.0-4.8); LYMPHOCYTES % (AUTO) 23.6 % (21.0-51.0); MONOCYTES # (AUTO) 0.3 K/uL (0.1-1.0); NEUTROPHILS # (AUTO) 4.7 K/uL (1.8-7.7); NEUTROPHILS % (AUTO) 69.8 % (40.0-77.0); PLATELET COUNT (AUTO) 181 K/uL (130-400); RED BLOOD CELL COUNT(AUTO) 4.69 MIL/uL (4.00-5.50); WHITE BLOOD COUNT (AUTO) 6.8 K/uL (4.8-10.8)
[2023-07-31 21:21] LABS: APPEARANCE,URINE CLEAR (CLEAR); BILIRUBIN,URINE NEGATIVE (NEGATIVE); COLOR,URINE COLORLESS (YELLOW); GLUCOSE, URINE (UA) >=1000 mg/dL (NEGATIVE); KETONES,URINE 20 mg/dL (NEGATIVE); LEUKOCYTE ESTERASE ,URINE 25 Leu/uL (NEGATIVE); NITRATE,URINE NEGATIVE (NEGATIVE); OCCULT BLOOD,URINE NEGATIVE (NEGATIVE); PH,URINE 6.5 (5.0-8.0); PROTEIN,URINE 10 mg/dL (NEGATIVE); UROBILINOGEN,URINE 0.2 mg/dL (0.2-1.0)
[2023-07-31 21:22] LABS: ADD UA MICROSCOPIC YES
[2023-07-31 21:26] LABS: POTASSIUM 3.9 mmol/L (3.5-5.1)
[2023-07-31 21:42] LABS: MEAN CORPUSCULAR HEMOGLOBIN 32.4 pg (27.0-33.0); MEAN CORPUSCULAR HGB CONC 38.3 g/dL (32.0-36.0)
[2023-07-31 21:53] LABS: BACTERIA,URINE RARE /HPF (None Seen); SQUAMOUS EPITHELIAL CELL,UR RARE /HPF (0-2); YEAST,URINE BUDDING RARE /HPF (None Seen)
[2023-07-31] MEDS ORDERED: PHENAZOPYRIDINE HCL 200 MG TABLET PO ONE (22:00)
[2023-07-31] MEDS ORDERED: HYDRALAZINE 20MG/ML VIAL IV ONE (22:00)
[2023-07-31] MEDS ORDERED: FAMOTIDINE 20MG VIAL IV ONE (22:00)
[2023-07-31] MEDS ORDERED: LIDOCAINE HCL 2% VISCOUS 15 ML UDCUP PO ONE (22:00)
[2023-07-31] MEDS ORDERED: INSULIN HUMULIN R 100 UNIT/ML 3ML SQ ONE (22:00)
[2023-07-31] MEDS ORDERED: METOCLOPRAMIDE 10 MG/2 ML VIAL IVP ONE (22:00)
[2023-07-31] MEDS ORDERED: MAG/ALUM/SIMETH 30 ML UDCUP PO ONE (22:00)
[2023-07-31] MEDS ORDERED: DICYCLOMINE HCL 10 MG/5 ML ML PO ONE (22:00)
[2023-07-31] MEDS ORDERED: CEPHALEXIN 500 MG CAPSULE PO ONE (22:00)
[2023-07-31 22:30] LABS: ALBUMIN 3.7 g/dL (3.5-5.0); BILIRUBIN,TOTAL 0.6 mg/dL (0.2-1.0); CREATININE 0.7 mg/dL (0.5-1.5); TOTAL PROTEIN, SERUM 7.5 g/dL (6.0-8.3)
[2023-08-01] MEDS ORDERED: CEFTRIAXONE 2GM VIAL IVPB ONE
[2023-08-01 00:14] LABS: ABG HCO3 18.5 mmol/L (21.0-28.0); ABG OXYGEN SATURATION 96.6 % (95.0-99.0); ABG PCO2 31 mmHg (32-45); DEVICE COMMENT ROOM AIR; PO2, ARTERIAL BG 85.5 mmHg (83.0-108.0); VENT MODE, BG ROOM AIR (ROOM AIR)
[2023-08-01 01:39] LABS: CREATININE 0.5 mg/dL (0.5-1.5)
[2023-08-01] MEDS ORDERED: METO-296 PO (04:33)
[2023-08-01] MEDS ORDERED: PANT40TA PO (04:33)
[2023-08-01] MEDS ORDERED: CEPH500B PO (04:33)
[2023-08-01 05:04] VITALS: BP 128/73; PULSE 92; RESP 18; O2SAT 97
== END 2023-08-01 05:06 | disposition home or self-care (01) ==
LOC: EDH 20:45
DX: K29.70 Gastritis, unspecified, without bleeding (principal); E11.65 Type 2 diabetes mellitus with hyperglycemia; E11.9 Type 2 diabetes mellitus without complications; Z79.899 Other long term (current) drug therapy; Z98.890 Other specified postprocedural states
CPT/HCPCS: 99285; 96375 ×2; 83735; 80053; 82803; 83690; 85025; 82948; 82010; 81001; 81025; 36415 ×2; 96372; 96365; 96366 ×2; 36600; 80048; J1815; J3490; J2765; J0696

== ENCOUNTER 2023-08-02 12:53 | Emergency (ER) | payer OTHER ==
[~2023-08-02] VITALS: Ht 165.1 cm; Wt 82.6 kg
[~2023-08-02 12:53] MED LIST changes: +CEPH500B PO; +METO-296 PO; +PANT40TA PO
[2023-08-02 13:16] VITALS: BP 124/69; PULSE 97; RESP 16; O2SAT 99
[2023-08-02 13:35] LABS: HCG,QUALITATIVE URINE NEGATIVE (NEGATIVE)
[2023-08-02 14:03] LABS: APPEARANCE,URINE CLEAR (CLEAR); BILIRUBIN,URINE NEGATIVE (NEGATIVE); COLOR,URINE YELLOW (YELLOW); GLUCOSE, URINE (UA) >=1000 mg/dL (NEGATIVE); KETONES,URINE NEGATIVE (NEGATIVE); LEUKOCYTE ESTERASE ,URINE 250 Leu/uL (NEGATIVE); NITRATE,URINE NEGATIVE (NEGATIVE); OCCULT BLOOD,URINE NEGATIVE (NEGATIVE); PROTEIN,URINE NEGATIVE (NEGATIVE); UROBILINOGEN,URINE 0.2 mg/dL (0.2-1.0)
[2023-08-02 14:04] LABS: ADD UA MICROSCOPIC YES
[2023-08-02 14:25] LABS: BASOPHILS # (AUTO) 0.01 K/uL (0.00-0.20); BASOPHILS % (AUTO) 0.2 % (0.0-5.0); EOSINOPHILS # (AUTO) 0.06 K/uL (0.00-0.70); EOSINOPHILS % (AUTO) 1.4 % (0.0-8.0); HEMATOCRIT 37.2 % (36-48); IMMATURE GRANULOCYTE ABSOLUTE 0.01 K/uL (0-1); LYMPHOCYTES # (AUTO) 1.6 K/uL (1.0-4.8); LYMPHOCYTES % (AUTO) 37.1 % (21.0-51.0); MEAN CORPUSCULAR HEMOGLOBIN 30.8 pg (27.0-33.0); MEAN CORPUSCULAR HGB CONC 36.3 g/dL (32.0-36.0); MEAN CORPUSCULAR VOLUME 84.9 fL (79-99); MONOCYTES # (AUTO) 0.2 K/uL (0.1-1.0); MONOCYTES % (AUTO) 5.1 % (3.0-13.0); NEUTROPHILS # (AUTO) 2.4 K/uL (1.8-7.7); PLATELET COUNT (AUTO) 151 K/uL (130-400); RED BLOOD CELL COUNT(AUTO) 4.38 MIL/uL (4.00-5.50); RED CELL DISTRIBUTION WIDTH 12.1 % (11.0-15.5); WHITE BLOOD COUNT (AUTO) 4.3 K/uL (4.8-10.8)
[2023-08-02 14:29] LABS: BACTERIA,URINE RARE /HPF (None Seen); MUCUS,URINE RARE LPF (None Seen); RBC,URINE 0-1 /HPF (0-1); SQUAMOUS EPITHELIAL CELL,UR MANY /HPF (0-2)
[2023-08-02 14:34] LABS: CREATININE 0.6 mg/dL (0.5-1.5); POTASSIUM 3.8 mmol/L (3.5-5.1)
[2023-08-02 14:40] LABS: ALBUMIN 3.3 g/dL (3.5-5.0); BILIRUBIN,TOTAL 0.5 mg/dL (0.2-1.0); TOTAL PROTEIN, SERUM 6.9 g/dL (6.0-8.3)
[2023-08-02 15:23] LABS: TRIGLYCERIDES 1777 mg/dL (30-200)
== END 2023-08-02 16:30 | disposition home or self-care (01) ==
LOC: EDH 12:53
DX: N39.0 Urinary tract infection, site not specified (principal); E78.1 Pure hyperglyceridemia; E11.9 Type 2 diabetes mellitus without complications; Z79.899 Other long term (current) drug therapy
CPT/HCPCS: 36415; 80053; 81001; 81025; 83690; 84478; 85025; 87088

== ENCOUNTER 2023-12-01 14:21 | Inpatient (IN) | payer OTHER ==
[~2023-12-01] VITALS: Ht 167.6 cm; Wt 83.4 kg
[2023-12-01 15:46] LABS: BASOPHILS # (AUTO) 0.04 K/uL (0.00-0.20); BASOPHILS % (AUTO) 0.5 % (0.0-5.0); EOSINOPHILS # (AUTO) 0.09 K/uL (0.00-0.70); EOSINOPHILS % (AUTO) 1.1 % (0.0-8.0); HEMATOCRIT 39.9 % (36-48); IMMATURE GRANULOCYTE ABSOLUTE 0.04 K/uL (0-1); LYMPHOCYTES % (AUTO) 24.3 % (21.0-51.0); MEAN CORPUSCULAR VOLUME 80.8 fL (79-99); MONOCYTES # (AUTO) 0.8 K/uL (0.1-1.0); MONOCYTES % (AUTO) 9.6 % (3.0-13.0); NEUTROPHILS # (AUTO) 5.4 K/uL (1.8-7.7); PLATELET COUNT (AUTO) 225 K/uL (130-400); RED BLOOD CELL COUNT(AUTO) 4.94 MIL/uL (4.00-5.50); RED CELL DISTRIBUTION WIDTH 12.7 % (11.0-15.5); WHITE BLOOD COUNT (AUTO) 8.4 K/uL (4.8-10.8)
[2023-12-01 16:15] LABS: MEAN CORPUSCULAR HEMOGLOBIN 32.6 pg (27.0-33.0); MEAN CORPUSCULAR HGB CONC 39.9 g/dL (32.0-36.0)
[2023-12-01 16:33] LABS: CARBON DIOXIDE 14 mmol/L (21-32); CHLORIDE 92 mmol/L (101-111); GLOMERULAR FILTR. RATE CALC 148 mL/min (>90); GLUCOSE,RANDOM 397 mg/dL (70-105); POTASSIUM 3.6 mmol/L (3.5-5.1); SODIUM SERUM 126 mmol/L (136-145); UREA NITROGEN, BLOOD 10 mg/dL (7-18)
[2023-12-01 16:35] LABS: ALBUMIN 3.6 g/dL (3.5-5.0); BILIRUBIN,TOTAL 1.1 mg/dL (0.2-1.0)
[2023-12-01 16:53] LABS: ASPARTATE AMINOTRANSFERASE 21 U/L (10-37)
[2023-12-01 16:54] LABS: ALANINE AMINOTRANSFERASE < 6 U/L (12-78)
[2023-12-01 16:55] LABS: CREATININE 0.3 mg/dL (0.5-1.5)
[2023-12-01 17:02] LABS: BAND NEUTROPHILS % (MANUAL) 2 % (0-2); LYMPHOCYTES % (MANUAL) 18 % (22-44); MAN.DIFF COMMENT-IMPRESSION MANUAL DIFFERENTIAL; MONOCYTES % (MANUAL) 2 % (2-9); REACTIVE LYMPHOCYTES 7 % (0-0); SEGMENTED NEUTROPHILS % 71 % (40-70); TOTAL CELLS COUNTED 100
[2023-12-01 18:14] LABS: APPEARANCE,URINE CLEAR (CLEAR); BILIRUBIN,URINE NEGATIVE (NEGATIVE); COLOR,URINE LIGHT-YELLOW (YELLOW); GLUCOSE, URINE (UA) >=1000 mg/dL (NEGATIVE); KETONES,URINE 150 mg/dL (NEGATIVE); LEUKOCYTE ESTERASE ,URINE 250 Leu/uL (NEGATIVE); NITRATE,URINE NEGATIVE (NEGATIVE); PH,URINE 5.5 (5.0-8.0); PROTEIN,URINE 50 mg/dL (NEGATIVE); UROBILINOGEN,URINE 0.2 mg/dL (0.2-1.0)
[2023-12-01 18:15] LABS: ADD UA MICROSCOPIC YES
[2023-12-01 18:18] LABS: HCG,QUALITATIVE URINE NEGATIVE (NEGATIVE)
[2023-12-01 18:21] LABS: BACTERIA,URINE RARE /HPF (None Seen); MUCUS,URINE RARE LPF (None Seen); SQUAMOUS EPITHELIAL CELL,UR FEW /HPF (0-2); UNCLASSIFIED CRYSTAL 2 /HPF (None Seen); YEAST,URINE BUDDING FEW /HPF (None Seen)
[2023-12-01] MEDS: DICYCLOMINE HCL 10 MG/5 ML ML PO ONE (18:47)
[2023-12-01] MEDS: MAG/ALUM/SIMETH 30 ML UDCUP PO ONE (18:47)
[2023-12-01] MEDS: LIDOCAINE HCL 2% VISCOUS 15 ML UDCUP PO ONE (18:47)
[2023-12-01] MEDS: 0.9%NACL 1000ML 1,000 ML IV ONE (20:34)
[2023-12-01] MEDS: INSULIN HUMULIN R 100 UNIT/ML 3ML IV STA (20:36)
[2023-12-01 21:03] LABS: ABG BASE EXCESS -6.5 mmol/L (-2.0-3.0); ABG PCO2 33 mmHg (32-45); DEVICE COMMENT RR RNLILY; PO2, ARTERIAL BG 94.6 mmHg (83.0-108.0); VENT MODE, BG RA (ROOM AIR)
[2023-12-01] MEDS ORDERED: NPH,100V11 SQ (22:59)
[2023-12-01] MEDS ORDERED: INSU100V12 SQ (22:59)
[2023-12-02] VITALS (8 sets, daily range): BP systolic 109–147; BP diastolic 63–84; PULSE 69–94; RESP 16–19; O2SAT 97
[2023-12-02 00:27] LABS: CREATININE 0.4 mg/dL (0.5-1.5); MAGNESIUM 1.7 mg/dL (1.80-2.40)
[2023-12-02] MEDS ORDERED: CEFTRIAXONE 1G VIAL 1 GM in 0.9%NACL 50ML 50 ML IV SCH (00:30)
[2023-12-02] MEDS ORDERED: ONDANSETRON 4MG INJ IV PRN (00:30)
[2023-12-02] MEDS ORDERED: ACETAMINOPHEN 325 MG TAB PO PRN ×2 (00:30)
[2023-12-02] MEDS ORDERED: GLUCAGON 1MG KIT 1 MG ML IM PRN (00:30)
[2023-12-02] MEDS ORDERED: DEXTROSE 50%-WATER 50 ML DISP.SYRIN IV PRN (00:30)
[2023-12-02 00:32] LABS: POTASSIUM 2.9 mmol/L (3.5-5.1)
[2023-12-02] MEDS: POTASSIUM CHLORIDE 20MEQ/100ML 100 ML IV PRN (00:54)
[2023-12-02] MEDS: 0.9%NACL 1000ML 1,000 ML IV SCH (00:54)
[2023-12-02] MEDS ORDERED: KETOROLAC 15MG/ML VIAL (15MG/ML) IV PRN (01:00)
[2023-12-02] MEDS: MAGNESIUM 2GM PREMIX 50ML 50 ML IV PRN (01:13)
[2023-12-02 04:57] LABS: BASOPHILS # (AUTO) 0.03 K/uL (0.00-0.20); BASOPHILS % (AUTO) 0.4 % (0.0-5.0); EOSINOPHILS # (AUTO) 0.08 K/uL (0.00-0.70); EOSINOPHILS % (AUTO) 1.1 % (0.0-8.0); HEMATOCRIT 38.2 % (36-48); IMMATURE GRANULOCYTE ABSOLUTE 0.04 K/uL (0-1); LYMPHOCYTES # (AUTO) 2.5 K/uL (1.0-4.8); LYMPHOCYTES % (AUTO) 33.5 % (21.0-51.0); MEAN CORPUSCULAR HEMOGLOBIN 36.1 pg (27.0-33.0); MEAN CORPUSCULAR VOLUME 82.2 fL (79-99); MONOCYTES # (AUTO) 0.4 K/uL (0.1-1.0); MONOCYTES % (AUTO) 5.2 % (3.0-13.0); NEUTROPHILS # (AUTO) 4.5 K/uL (1.8-7.7); NEUTROPHILS % (AUTO) 59.3 % (40.0-77.0); PLATELET COUNT (AUTO) 176 K/uL (130-400); RED BLOOD CELL COUNT(AUTO) 4.65 MIL/uL (4.00-5.50); RED CELL DISTRIBUTION WIDTH 12.9 % (11.0-15.5); WHITE BLOOD COUNT (AUTO) 7.6 K/uL (4.8-10.8)
[2023-12-02 05:54] LABS: ALBUMIN 3.2 g/dL (3.5-5.0); BILIRUBIN,TOTAL 0.6 mg/dL (0.2-1.0); CARBON DIOXIDE 22 mmol/L (21-32); CHLORIDE 97 mmol/L (101-111); CHOLESTEROL 228 mg/dL (<200); CREATININE 0.4 mg/dL (0.5-1.5); GLOMERULAR FILTR. RATE CALC 138 mL/min (>90); GLUCOSE,RANDOM 306 mg/dL (70-105); HDL CHOLESTEROL 25 mg/dL (35-85); LDL DIRECT 37 mg/dL (0-99); POTASSIUM 3.8 mmol/L (3.5-5.1); SODIUM SERUM 131 mmol/L (136-145); THYROID STIMULATING HORMONE 1.37 uIU/mL (0.36-3.74); TOTAL PROTEIN, SERUM 6.4 g/dL (6.0-8.3); TRIGLYCERIDES 2095 mg/dL (30-200); UREA NITROGEN, BLOOD 5 mg/dL (7-18)
[2023-12-02] MEDS: INSULIN HUMULIN R 100 UNIT/ML 3ML SQ SCH ×3 (06:04→17:58)
[2023-12-02] MEDS: CEFTRIAXONE 1G VIAL IVPB SCH (06:34)
[2023-12-02 07:33] LABS: ASPARTATE AMINOTRANSFERASE 8 U/L (10-37)
[2023-12-02 07:34] LABS: ALANINE AMINOTRANSFERASE < 6 U/L (12-78)
[2023-12-02] MEDS: FAMOTIDINE 20MG VIAL IV SCH (09:52)
[2023-12-02] MEDS ORDERED: INSREG SQ (10:24)
[2023-12-02] MEDS ORDERED: PHARMACY COMMUNICATION MISC SCH (14:30)
[2023-12-02] MEDS: FENOFIBRATE NANOCRYSTALLIZED 145 MG TAB PO SCH (18:05)
[2023-12-02] MEDS: INSULIN GLARGINE 100 UNITS/ML 10 ML VIAL SQ SCH (20:58)
[2023-12-02] MEDS: FISH OIL 1000 MG/CAP PO SCH (20:59)
[2023-12-03 04:00] VITALS: BP 135/74; PULSE 89; RESP 16
[2023-12-03 05:31] LABS: BASOPHILS # (AUTO) 0.02 K/uL (0.00-0.20); BASOPHILS % (AUTO) 0.4 % (0.0-5.0); EOSINOPHILS # (AUTO) 0.09 K/uL (0.00-0.70); EOSINOPHILS % (AUTO) 1.8 % (0.0-8.0); HEMATOCRIT 37.5 % (36-48); IMMATURE GRANULOCYTE ABSOLUTE 0.03 K/uL (0-1); LYMPHOCYTES # (AUTO) 2.3 K/uL (1.0-4.8); MEAN CORPUSCULAR HEMOGLOBIN 31.8 pg (27.0-33.0); MEAN CORPUSCULAR HGB CONC 38.1 g/dL (32.0-36.0); MEAN CORPUSCULAR VOLUME 83.3 fL (79-99); MONOCYTES # (AUTO) 0.2 K/uL (0.1-1.0); MONOCYTES % (AUTO) 4.7 % (3.0-13.0); NEUTROPHILS # (AUTO) 2.4 K/uL (1.8-7.7); NEUTROPHILS % (AUTO) 46.5 % (40.0-77.0); PLATELET COUNT (AUTO) 163 K/uL (130-400); RED CELL DISTRIBUTION WIDTH 13.3 % (11.0-15.5); WHITE BLOOD COUNT (AUTO) 5.1 K/uL (4.8-10.8)
[2023-12-03 05:54] LABS: ALBUMIN 2.8 g/dL (3.5-5.0); BILIRUBIN,TOTAL 0.9 mg/dL (0.2-1.0); CARBON DIOXIDE 17 mmol/L (21-32); CHLORIDE 97 mmol/L (101-111); GLOMERULAR FILTR. RATE CALC 148 mL/min (>90); GLUCOSE,RANDOM 299 mg/dL (70-105); POTASSIUM 4.6 mmol/L (3.5-5.1); SODIUM SERUM 128 mmol/L (136-145); UREA NITROGEN, BLOOD 8 mg/dL (7-18)
[2023-12-03] MEDS: INSULIN HUMULIN R 100 UNIT/ML 3ML SQ SCH ×2 (05:54→05:55)
[2023-12-03 06:26] LABS: EOSINOPHILS % (MANUAL) 1 % (1-6); LYMPHOCYTES % (MANUAL) 59 % (22-44); MONOCYTES % (MANUAL) 2 % (2-9); REACTIVE LYMPHOCYTES 1 % (0-0); SEGMENTED NEUTROPHILS % 37 % (40-70); TOTAL CELLS COUNTED 100
[2023-12-03 06:27] LABS: MAN.DIFF COMMENT-IMPRESSION MANUAL DIFFERENTIAL; PLATELET MORPHOLOGY COMMENT ADEQUATE; WBC MORPHOLOGY NORMAL
[2023-12-03 06:53] LABS: CREATININE 0.3 mg/dL (0.5-1.5); TOTAL PROTEIN, SERUM 6.7 g/dL (6.0-8.3); TRIGLYCERIDES 1588 mg/dL (30-200)
[2023-12-03 07:20] LABS: ASPARTATE AMINOTRANSFERASE 39 U/L (10-37)
[2023-12-03 07:35] LABS: ALANINE AMINOTRANSFERASE < 6 U/L (12-78)
[2023-12-03 08:00] VITALS: BP_SYST 126; BP_SYST 133; BP_DIAS 69; BP_DIAS 80; PULSE 97; RESP 18
[2023-12-03] MEDS ORDERED: PHARMACY COMMUNICATION MISC SCH (08:00)
[2023-12-03] MEDS: FENOFIBRATE NANOCRYSTALLIZED 145 MG TAB PO SCH (08:59)
[2023-12-03] MEDS: ENOXAPARIN SODIUM 40 MG/0.4 ML SYRINGE SQ SCH (09:01)
[2023-12-03] MEDS: INSULIN GLARGINE 100 UNITS/ML 10 ML VIAL SQ SCH (09:03)
[2023-12-03 11:00] VITALS: BP 119/70; PULSE 82; RESP 18
[2023-12-03] MEDS ORDERED: 0.9%NACL 1000ML 1,000 ML IV SCH (11:00)
[2023-12-03] MEDS: DOCUSATE SODIUM 100 MG CAP PO ONE (12:03)
[2023-12-03] MEDS ORDERED: OMEG100033 PO (13:44)
[2023-12-03] MEDS ORDERED: INSREG SQ (13:44)
[2023-12-03] MEDS ORDERED: INSU100V12 SQ (13:44)
[2023-12-03] MEDS ORDERED: FENO145T26 PO (13:44)
[2023-12-03] MEDS ORDERED: CEPH500C2 PO (13:44)
== END 2023-12-03 19:30 | disposition home or self-care (01) | DRG 638 ==
LOC: EDH 14:21 → EDHIP 14:22 → OBSVTOIN 14:22 → 4DH 12-02 01:02
PROVIDERS: ADMIT Internal Medicine; ATTEND Internal Medicine
DX: E11.10 Type 2 diabetes mellitus with ketoacidosis without coma (principal); E87.1 Hypo-osmolality and hyponatremia; E78.1 Pure hyperglyceridemia; E86.0 Dehydration; E86.1 Hypovolemia; N39.0 Urinary tract infection, site not specified; Z91.199 Patient's noncompliance with other medical treatment and regimen due to unspecified reason; Z79.4 Long term (current) use of insulin; Z79.899 Other long term (current) drug therapy; Z83.3 Family history of diabetes mellitus; Z91.148 Patient's other noncompliance with medication regimen for other reason
CPT/HCPCS: 36415; 36600; 80048; 80053; 80061; 81001; 81025; 82010; 82803; 82948; 83036; 83690; 83735; 84443; 84478; 85025; 87088; G0378; J0696; J1650; J1815; J3475; J3480; J3490; J7030

== ENCOUNTER 2024-02-15 22:32 | Emergency (ER) | payer OTHER ==
[~2024-02-15] VITALS: Ht 165.1 cm; Wt 81.6 kg
[~2024-02-15 22:32] MED LIST changes: -ACET-2079 PO; -AMOX-426 PO; -ATOR40TA69 PO; -CEFD300C3 PO; -CEPH500B PO; +CEPH500C2 PO; -CLIN-141 PO; -FENO145T PO; +FENO145T26 PO; -FISH1CAP20 PO; -IBUP-2070 PO; +INSREG SQ; -INSU100V3 SQ; -METO-296 PO; -NAPR500T6 PO; +OMEG100033 PO; -ONDA4TAB10 PO; -PANT40TA PO
[2024-02-15] MEDS: DEXAMETHASONE SOD PHOSPHATE 4 MG/ML 1ML VIAL IM ONE (23:10)
[2024-02-15] MEDS: CEFTRIAXONE 1G VIAL IM ONE (23:10)
[2024-02-15] MEDS: KETOROLAC 30MG VIAL (30MG/ML) IM ONE (23:10)
[2024-02-16] MEDS ORDERED: KETO10 PO (00:10)
[2024-02-16] MEDS ORDERED: CLIN-141 PO (00:10)
[2024-02-16 00:32] VITALS: BP 125/75; PULSE 78; RESP 16; O2SAT 100
== END 2024-02-16 00:33 | disposition home or self-care (01) ==
LOC: EDH 22:32
DX: K04.7 Periapical abscess without sinus (principal); E11.9 Type 2 diabetes mellitus without complications; Z79.899 Other long term (current) drug therapy
CPT/HCPCS: 99284; 96372 ×3; J1100; J0696; J1885

== ENCOUNTER 2024-05-14 12:28 | Emergency (ER) | payer MEDICAID ==
[~2024-05-14] VITALS: Ht 165.1 cm; Wt 83.9 kg
[~2024-05-14 12:28] MED LIST changes: +CLIN-141 PO; +KETO10 PO
[2024-05-14] MEDS: 0.9%NACL 1000ML 1,000 ML IV STA (12:59)
[2024-05-14 13:15] LABS: BASOPHILS # (AUTO) 0.03 K/uL (0.00-0.20); BASOPHILS % (AUTO) 0.3 % (0.0-5.0); EOSINOPHILS # (AUTO) 0.07 K/uL (0.00-0.70); EOSINOPHILS % (AUTO) 0.8 % (0.0-8.0); HEMATOCRIT 37.4 % (36-48); IMMATURE GRANULOCYTE ABSOLUTE 0.04 K/uL (0-1); LYMPHOCYTES # (AUTO) 2.9 K/uL (1.0-4.8); LYMPHOCYTES % (AUTO) 33.6 % (21.0-51.0); MEAN CORPUSCULAR HEMOGLOBIN 30.5 pg (27.0-33.0); MEAN CORPUSCULAR HGB CONC 36.4 g/dL (32.0-36.0); MEAN CORPUSCULAR VOLUME 83.9 fL (79-99); MONOCYTES # (AUTO) 0.4 K/uL (0.1-1.0); MONOCYTES % (AUTO) 4.8 % (3.0-13.0); NEUTROPHILS # (AUTO) 5.2 K/uL (1.8-7.7); PLATELET COUNT (AUTO) 204 K/uL (130-400); RED BLOOD CELL COUNT(AUTO) 4.46 MIL/uL (4.00-5.50); RED CELL DISTRIBUTION WIDTH 12.4 % (11.0-15.5); WHITE BLOOD COUNT (AUTO) 8.6 K/uL (4.8-10.8)
[2024-05-14 13:19] LABS: CREATININE 0.6 mg/dL (0.5-1.0); POTASSIUM 3.9 mmol/L (3.5-5.1)
[2024-05-14 16:31] VITALS: BP 110/62; PULSE 71; RESP 18; TEMP 98.8; O2SAT 99
[2024-05-15] MEDS ORDERED: AMOX250L PO (01:49)
== END 2024-05-14 16:36 | disposition home or self-care (01) ==
LOC: EDH 12:28
DX: N93.9 Abnormal uterine and vaginal bleeding, unspecified (principal); R10.2 Pelvic and perineal pain; E11.9 Type 2 diabetes mellitus without complications; Z79.4 Long term (current) use of insulin; Z79.899 Other long term (current) drug therapy
CPT/HCPCS: 99284; 96360; 76801; 80048; 84703; 84702; 85025; 86850; 86900; 86901; 36415; J7030

== ENCOUNTER 2024-05-14 23:53 | Emergency (ER) | payer MEDICAID ==
[~2024-05-14] VITALS: Ht 165.1 cm; Wt 73.9 kg
[2024-05-15 01:33] LABS: APPEARANCE,URINE CLEAR (CLEAR); BILIRUBIN,URINE NEGATIVE (NEGATIVE); COLOR,URINE COLORLESS (YELLOW); GLUCOSE, URINE (UA) >=1000 mg/dL (NEGATIVE); KETONES,URINE 20 mg/dL (NEGATIVE); LEUKOCYTE ESTERASE ,URINE NEGATIVE Leu/uL (NEGATIVE); NITRATE,URINE NEGATIVE (NEGATIVE); OCCULT BLOOD,URINE LARGE (NEGATIVE); PROTEIN,URINE NEGATIVE (NEGATIVE); UROBILINOGEN,URINE 0.2 mg/dL (0.2-1.0)
[2024-05-15 01:35] LABS: ADD UA MICROSCOPIC YES
[2024-05-15 01:37] LABS: RBC,URINE TNTC /HPF (0-1); SQUAMOUS EPITHELIAL CELL,UR RARE /HPF (0-2)
[2024-05-15] MEDS: OXYCODONE/ACETAMIN 5/325MG TAB PO ONE (01:40)
[2024-05-15] MEDS: ONDANSETRON 4MG TABLET PO ONE (01:41)
[2024-05-15] MEDS ORDERED: AMOX250L PO (01:49)
[2024-05-15 02:15] VITALS: BP 132/70; PULSE 80; RESP 16; TEMP 98.3; O2SAT 98
== END 2024-05-15 02:17 | disposition home or self-care (01) ==
LOC: EDH 23:53
DX: O20.9 Hemorrhage in early pregnancy, unspecified (principal); R10.2 Pelvic and perineal pain; E10.65 Type 1 diabetes mellitus with hyperglycemia; Z79.4 Long term (current) use of insulin; Z79.899 Other long term (current) drug therapy; Z3A.00 Weeks of gestation of pregnancy not specified
CPT/HCPCS: 99283; 87086; 81001; Q0162

== ENCOUNTER 2024-05-17 13:31 | Emergency (ER) | payer SELFPAY ==
[~2024-05-17] VITALS: Ht 165.1 cm; Wt 73.9 kg
[~2024-05-17 13:31] MED LIST changes: +AMOX250L PO
[2024-05-17 14:34] LABS: BASOPHILS # (AUTO) 0.04 K/uL (0.00-0.20); BASOPHILS % (AUTO) 0.6 % (0.0-5.0); EOSINOPHILS % (AUTO) 1.4 % (0.0-8.0); HEMATOCRIT 33.2 % (36-48); IMMATURE GRANULOCYTE ABSOLUTE 0.09 K/uL (0-1); LYMPHOCYTES # (AUTO) 2.7 K/uL (1.0-4.8); LYMPHOCYTES % (AUTO) 38.4 % (21.0-51.0); MEAN CORPUSCULAR HEMOGLOBIN 31.7 pg (27.0-33.0); MEAN CORPUSCULAR VOLUME 85.6 fL (79-99); MONOCYTES # (AUTO) 0.3 K/uL (0.1-1.0); MONOCYTES % (AUTO) 4.7 % (3.0-13.0); NEUTROPHILS # (AUTO) 3.8 K/uL (1.8-7.7); NEUTROPHILS % (AUTO) 53.6 % (40.0-77.0); PLATELET COUNT (AUTO) 192 K/uL (130-400); RED BLOOD CELL COUNT(AUTO) 3.88 MIL/uL (4.00-5.50); RED CELL DISTRIBUTION WIDTH 12.4 % (11.0-15.5); WHITE BLOOD COUNT (AUTO) 7.1 K/uL (4.8-10.8)
[2024-05-17 14:44] LABS: CREATININE 0.7 mg/dL (0.5-1.0); POTASSIUM 3.7 mmol/L (3.5-5.1)
[2024-05-17 16:34] VITALS: BP 137/74; PULSE 82; RESP 16; O2SAT 98
== END 2024-05-17 16:35 | disposition home or self-care (01) ==
LOC: EDH 13:31
DX: O03.9 Complete or unspecified spontaneous abortion without complication (principal); O26.891 Other specified pregnancy related conditions, first trimester; R10.2 Pelvic and perineal pain; I10 Essential (primary) hypertension; E11.9 Type 2 diabetes mellitus without complications; Z3A.01 Less than 8 weeks gestation of pregnancy; Z79.899 Other long term (current) drug therapy
CPT/HCPCS: 36415; 76801; 80048; 84702; 85025